=== PATIENT | female | born 1970 | race Caucasian/White ===

== ENCOUNTER → 2023-11-11 | Outpatient (CLI) | payer OTHER ==
--- NOTE | 2023-11-11 13:04 | XR ---
EXAMINATION TYPE: XR chest 2V DATE OF EXAM: 11/11/2023 12:36 PM CLINICAL INDICATION:Female, 53 years old with history of CHEST XR; [facility] COMPARISON: Chest radiographs from 04/06/2012 TECHNIQUE: XR chest 2V Frontal and lateral views of the chest. FINDINGS: Lungs/Pleura: There is no evidence of pleural effusion, focal consolidation, or pneumothorax. Pulmonary vascularity: Unremarkable. Heart/mediastinum: Cardiomediastinal silhouette is unremarkable. Musculoskeletal: No acute osseous pathology. Other findings: None IMPRESSION: No acute cardiopulmonary disease/process.
[2023-11-11 13:14] LABS: Partial Thromboplastin Time 22.5 sec (22.0-30.0); Prothrombin Time 10.5 sec (10.0-12.5)
[2023-11-11 15:33] LABS: BUN/Creat Ratio 34.71 Ratio (12.00-20.00); Blood Urea Nitrogen 24.3 mg/dL (9.0-27.0); Calcium 9.8 mg/dL (8.7-10.3); Chloride 101 mmol/L (96-109); Glucose 92 mg/dL (70-110); Sodium 139 mmol/L (135-145)
[2023-11-11 15:41] LABS: Basophils # (A) 0.05 X 10*3/uL (0.00-0.10); Basophils % (A) 0.7 %; Eosinophils # (A) 0.12 X 10*3/uL (0.04-0.35); Eosinophils % (A) 1.6 %; HCT 38.3 % (37.2-46.3); HGB 13.1 g/dL (12.0-15.0); Lymphocytes % (A) 25.4 %; MCH 35.4 pg (27.0-32.0); MCHC 34.2 g/dL (32.0-37.0); MCV 103.5 FL (80.0-97.0); Mean Platelet Volume 9.3 FL (9.5-12.2); Monocytes # (A) 0.64 X 10*3/uL (0.20-1.00); Monocytes % (A) 8.6 %; NRBC Per 100 WBC 0 X 10*3/uL (0.00-0.01); Neutrophils # (A) 4.67 X 10*3/uL (1.80-7.70); Neutrophils % (A) 62.5 %; Platelet Count 310 X 10*3/uL (140-440); RDW 12.5 % (11.5-14.5); WBC 7.47 X 10*3/uL (4.50-10.00)
[2023-11-11 18:29] LABS: Appearance,Urine Clear (Clear); Bilirubin,Urine Negative (Negative); Blood,Urine Negative (Negative); Color,Urine Yellow (Yellow); Ketones,Urine Negative (Negative); Nitrite,Urine Negative (Negative); PH, Urine 5.5; Specific Gravity,Urine 1.018 (1.001-1.030); Urobilinogen,Urine 0.2 E.U./DL
[2023-11-11 19:00] LABS: Bacteria,Urine Trace
== END | disposition home or self-care (01) ==
LOC: LABPAT 11:08
PROVIDERS: ATTEND Orthopaedic Surgery Orthopaedic Surgery of the Spine
DX: Z01.812 Encounter for preprocedural laboratory examination (principal); M51.27 Other intervertebral disc displacement, lumbosacral region; R94.31 Abnormal electrocardiogram [ECG] [EKG]
CPT/HCPCS: 71046; 80048; 81001; 85025; 85610; 85730; 86850; 86900; 86901; 87070; 93005

== ENCOUNTER 2023-11-15 05:39 | Observation (INO) | payer OTHER ==
[~2023-11-15 05:39] MED LIST: ceFAZolin 1,000 MG in SODIUM CHLORIDE 0.9% IRRIGATIO 1,000 ML IRRIGATION PRN
[2023-11-15] MEDS ORDERED: LIDOCAINE 1% (10MG/ML) FOR IV START INTRADERMA PRN (06:52)
[2023-11-15] MEDS ORDERED: ONDANSETRON 4 MG/2 ML VIAL IVP ONE (06:52)
[2023-11-15] MEDS ORDERED: SCOPOLAMINE 1 MG/72 HR PATCH TRANSDERM ONE (06:52)
[2023-11-15] MEDS ORDERED: DEXAMETHASONE SOD PHOSPHATE 4 MG/ML 1 ML VIAL IV ONE (06:52)
[2023-11-15] MEDS ORDERED: ONDANSETRON 4 MG/2 ML VIAL ONE (06:52)
[2023-11-15] MEDS: LACTATED RINGERS 1,000 ML IV SCH ×2 (07:00→13:07)
[2023-11-15] MEDS ORDERED: MIDAZOLAM 2 MG/2 ML VIAL IV PRN (07:00)
[2023-11-15] MEDS ORDERED: fentaNYL (PF) 50 MCG/ML 2 ML AMP IV PRN (07:00)
[2023-11-15] MEDS ORDERED: fentaNYL (PF) 50 MCG/ML 2 ML AMP ONE (07:56)
[2023-11-15] MEDS ORDERED: GLYCOPYRROLATE 0.2 MG/ML 2 ML VIAL ONE (07:56)
[2023-11-15] MEDS ORDERED: ESMOLOL 100 MG/10 ML VIAL ONE (07:56)
[2023-11-15] MEDS ORDERED: MIDAZOLAM 2 MG/2 ML VIAL ONE (07:56)
[2023-11-15] MEDS ORDERED: PROPOFOL 10 MG/ML 20 ML VIAL IV ONE (07:56)
[2023-11-15] MEDS ORDERED: NEOSTIGMINE 1 MG/ML 10 ML VIAL ONE (07:56)
[2023-11-15] MEDS ORDERED: PHENYLEPHRINE 10 MG/ML VIAL ONE (07:56)
[2023-11-15] MEDS ORDERED: ROCURONIUM 10 MG/ML (5 ML VIAL) IV ONE (07:56)
[2023-11-15] MEDS ORDERED: HYDROmorphone (PF) 1 MG/ML ONE (07:56)
[2023-11-15] MEDS ORDERED: SUCCINYLCHOLINE CHLORIDE 200 MG/10 ML VIAL IV ONE (07:56)
[2023-11-15] MEDS ORDERED: LIDOCAINE 1% INJ 10MG/ML (20 ML MDV) ONE (07:56)
[2023-11-15] MEDS ORDERED: LACTATED RINGERS 1,000 ML IV ONE (09:19)
[2023-11-15] MEDS ORDERED: THROMBIN (BOVINE) 5,000 UNIT VIAL TOPICAL ONE (09:52)
[2023-11-15] MEDS ORDERED: LIDOCAINE 1%-EPI 1:100,000 50 ML VIAL SQ ONE (09:52)
[2023-11-15] MEDS ORDERED: GELATIN SPONGE,ABSORB (LARGE) 1 EACH SPONGE TOPICAL ONE (09:52)
[2023-11-15] MEDS ORDERED: ONDANSETRON 4 MG/2 ML VIAL IVP PRN (10:48)
[2023-11-15] MEDS ORDERED: HYDROmorphone 0.5 MG/0.5 ML SYRINGE IVP PRN (10:48)
[2023-11-15] MEDS ORDERED: BENZOCAINE/MENTHOL LOZENG 1 EACH LOZENGE MUCOUS MEM PRN (10:48)
[2023-11-15] MEDS ORDERED: SENNOSIDES-DOCUSATE SODIUM 1 EACH TAB PO PRN (10:48)
[2023-11-15] MEDS ORDERED: HYDROcodone/APAP 5-325MG 1 EACH TAB PO PRN (10:50)
[2023-11-15] MEDS ORDERED: traMADol 50 MG TAB PO PRN (10:50)
[2023-11-15] MEDS: HYDROmorphone 0.5 MG/0.5 ML SYRINGE IVP PRN ×3 (10:54→11:32)
--- NOTE | 2023-11-15 10:55 | P.OP ---
Date of Procedure: 11/15/23 Preoperative Diagnosis: Massive disc herniation L4 5, right lower extremity radiculopathy, right lower extremity weakness, retrolisthesis L4 5, degenerative disc disease, low back pain Postoperative Diagnosis: Same Anesthesia: GETA Pathology: none sent Condition: stable Disposition: PACU Description of Procedure: DESCRIPTION OF PROCEDURE(S): BRIEF OPERATIVE NOTE Preoperative Diagnosis: Massive disc herniation L4 5, right lower extremity radiculopathy, right lower extremity weakness, retrolisthesis L4 5, degenerative disc disease, low back pain Postoperative Diagnosis: Same Procedure: Laminectomy and decompression L4 [address] navigation aided Minimally invasive Posterior lateral decompression and facet fusion L4 5 Minimally invasive Transforaminal lumbar interbody fusion for a 360 fusion L4 5 Discectomy for decompression L4 5 be on that needed for preparation for fusion Placement of interbody graft L4 5 Use of computer navigation for fusion L4 5 Local autogenous bone grafting L4 5 Aspiration of bone marrow from the vertebral body pedicle L4 on the right Use of bone graft extenders Surgeon: Dr. Starkey Attendance Clerk: Carlos Manuel GUERRA who is present throughout the entire the case persistence during positioning, dissection, exposure, visualization, and all crucial elements of the case as well as closure. Anesthesia: General anesthesia per Estimated blood loss: Approximately 200 mL Complications: None apparent Components implanted: K2M minimally invasive [place] pedicle screw system withscrews measuring 6.5 mm in diameter to rods one L[place] interbody cage with 10 mL of osteo amp bio4 bone graft substitute and 30 mL of the BX bone fibers to supplement the local autogenous bone graft and bone marrow aspirate Disposition: To recovery room in good stable condition. OPERATIVE INDICATIONS The patient has had severe issues at their lower extremity in her lower back over the past several years with significant worsening over the past several months. Over the past few months the patient had pain at their back and their lower extremities. The patient is having severe radicular symptoms at their lower extremity with weakness. The pain was severe particularly on the right side and giving her weakness on the right side causing her significant debility with difficulty with any sort of regular activities or obtaining comfort. The patient is having significant pain in their back. They are unable to obtain any comfort. We did aggressive conservative treatment with medications therapy and interventional pain management however thery were not having any relief. The patient also showed evidence of a listhesis with some dynamic instability at L4 5 with retrolisthesis. The patient has been through conservative treatment. We discussed various treatment options including surgery, and the patient wishes to proceed with surgery We discussed the risk, patient's alternatives and benefits of surgery including but not limited to, risk of bleeding risk of infection, risk of need for further surgery, risk of decreased, loss of motion, muscle function, malunion nonunion, hardware failure, nerve damage, paralysis, heart attack, blindness and . They understood issues with the current pandemic and the possibility of exposure. OPERATIVE SUMMARY After discussing all the risks, patient alternatives and benefits at length, the patient elected to proceed with surgical intervention, signed informed consent, and presented for their procedure. The patient was seen and examined in the preoperative holding area and the surgical site was marked. The patient was given antibiotics and brought to the operating room. The patient was sedated and intubated by anesthesia in standard fashion. The patient was positioned on to the operating room table in a prone position on the appropriate frame which was well-padded and well molded. We were careful to pad any bony prominences and pressure points. We were careful to maintain the patient's cervical spine and good neutral alignment and position throughout. The patient was prepped and draped in a normal standard fashion. An appropriate timeout and keystone protocol performed. We were able to proceed with the marco nick. The local wound area was infiltrated with local anesthetic. Over the right iliac crest I was able to make small stab incisions and establish a guidepin screw fixation to the iliac crest 2. I was able place the computer referencing device over the guidepins to establish an appropriate reference point for the Ziem CT navigation. We then were able to place patient in an appropriate drape and do a navigation spin for visualization and 3-D reconstruction of the lumbar spine. I was able utilize C-arm guidance and navigation to establish appropriate position over the pedicles bilaterally at the appropriate levels at L4 5 . With the appropriate levels confirmed was able to make small incisions over the appropriate pedicle sites bilaterally at L4 5. Utilizing the computer navigation device I was able to establish bony landmarks at the right iliac crest for a bony reference point for the navigation device. I was able to establish a Jamshidi needle over the lateral aspect of the pedicle and advanced the trocar into the pedicle being careful not to breech superiorly inferiorly medially or laterally using computer navigation device. Position was confirmed regularly with AP and lateral images on C-arm and with the computer navigation device at the appropriate levels bilaterally. I was able to establish the trocar into the pedicle appropriately into the posterior aspect of the vertebral body bilaterally at the appropriate levels at L4 5. This was done at each of the pedicle positions and each of the vertebrae. At the superior vertebrae I was able to take approximately 10 mL of bone aspiration for use later in the case to supplement the allograft and autograft bone. I was able place the guidewire into the trocar and into the vertebral body appropriately under C-arm guidance. Dissection was taken down over the wire to the appropriate starting position for the screw placed. The appropriate length screw was chosen, threaded over the guidewire and screwed appropriately into the pedicle and vertebral body under C-arm guidance in excellent alignment and position with good bony purchase. This is done at each of the screw sites at the appropriate levels at L4 and L5. With the screws intact I extended the incision to connect the screw hole sites on the most symptomatic side on the right side. I dissected down to establish access over the pars and lamina to the base of the spinous process. I was able to expose the facet joint. The capsule the facet was taken down and showed some facet arthrosis at the joint. I was able to use a combination of curettes and Kerrison rongeurs and a high-speed drill to take down the facet joint and do a facetectomy. I was able get excellent foraminal decompression and central decompression with undermining across midline to perform a laminectomy centrally and contralaterally. As able get good central decompression. The ligamentum flavum was taken down to further decompress centrally and at bilateral neural fo ramen. I was able to expose the disc space and visualize the traversing nerve root. Note was made of some disc protrusion and disc herniation that was abutting the traversing nerve root at the level causing further compression of the nerve root. There was evidence of essentially a massive disc herniation with large extruded fragment and multiple small fragments causing significant distortion of the neurologic structures. I was able to establish a annulotomy at the appropriate level protecting soft tissue and neural structures. Note was made of some disc desiccation at the disc. I performed a complete discectomy with accommodation of curettes and rasps and scrapers. I reduced significant expiration and removal of disc material nor she had excellent decompression. I was able get good endplate preparation at the disc space. I sized for the appropriate size interbody spacer protecting the soft tissue and neural structures. The wound was copiously irrigated and suctioned dry. There is no evidence of any dural tear or leak. I was able to pack the disc space with local autogenous bone graft as well as a small amount of bone graft which was also placed into the interbody cage itself. Protecting the soft tissue structures and neural structures I was able place the interbody cage in good alignment and good position with good fit and fill at the interbody space. Position was confirmed with C-arm guidance. Good hemostasis maintained. There is no evidence of any dural tear or leak. The wound was irrigated and suctioned dry. With the hardware intact, intraoperative C-arm imaging was again taken which showed good alignment and position of the hardware at the appropriate levels at L4 and L5. We were then able to measure, contour and place the rods and appropriate hardware bilaterally. I was able to place capcrews, tighten them down, and torque them with the torque screwdriver appropriately. With this intact I was able to place the local autogenous bone graft with additional bone graft enhancer as necessary into the posterior lateral gutters over the decorticated transverse processes and facet joints on the contralateral side. The remainder of the bone graft was placed over the facet joint on the contralateral side after taking down the facet joint capsule. With the bone graft intact, a stable construct, and good decompression at the appropriate leve ls, we were able to proceed with closure. Good hemostasis was maintained. There is no evidence of dural tear or leak. The fascia was closed for a watertight closure. he subcuticular tissue was closed with absorbable suture. The wound was cleaned and dried and dressed with the appropriate dressing. The drapes were broken down. The patient was gently rolled back onto their hospital bed being careful to maintain their cervical spine and good neutral alignment and position. They were woken up by anesthesia, extubated, and brought to the recovery room in good stable condition. The patient will be admitted to the hospital for appropriate postoperative care, medical management and monitoring. We will continue to follow them closely about the postoperative course.
--- NOTE | 2023-11-15 12:01 | XR ---
Fluoroscopy INDICATION: Pain FINDINGS: Fluoroscopy time: 17 seconds. Total dose area product (DAP) in uGy*m?, mGy*cm? (or similar): 2089.55 Images obtained: 0. IMPRESSION: 1. Documentation of fluoroscopy.
[2023-11-15] MEDS: HYDROcodone/APAP 5-325MG 1 EACH TAB PO PRN ×2 (13:39→22:53)
[2023-11-15] MEDS: CYCLOBENZAPRINE 10 MG TAB PO PRN (13:39)
[2023-11-15] MEDS: HYDROmorphone 1 MG/ML 1 ML SYRINGE IVP PRN ×2 (16:26→20:17)
[2023-11-15] MEDS: SODIUM CHLORIDE 0.9% 1,000 ML IV SCH (16:31)
[2023-11-15] MEDS: ACETAMINOPHEN TAB 325 MG TAB PO PRN (18:41)
[2023-11-15] MEDS: ZOLPIDEM 5 MG TAB PO SCH (20:19)
[2023-11-16] MEDS: HYDROmorphone 1 MG/ML 1 ML SYRINGE IVP PRN ×5 (00:43→20:14)
[2023-11-16] MEDS: SODIUM CHLORIDE 0.9% 1,000 ML IV SCH ×2 (00:47→16:19)
[2023-11-16] MEDS: HYDROcodone/APAP 5-325MG 1 EACH TAB PO PRN ×5 (03:05→22:20)
[2023-11-16] MEDS: ACETAMINOPHEN TAB 325 MG TAB PO PRN (03:06)
[2023-11-16] MEDS: CYCLOBENZAPRINE 10 MG TAB PO PRN ×2 (08:29→16:19)
[2023-11-16] MEDS: ESCITALOPRAM 20 MG TAB PO SCH (08:29)
[2023-11-16] MEDS: SENNOSIDES-DOCUSATE SODIUM 1 EACH TAB PO SCH (08:29)
[2023-11-16 08:30] LABS: Basophils # (A) 0.03 X 10*3/uL (0.00-0.10); Basophils % (A) 0.3 %; Eosinophils # (A) 0.02 X 10*3/uL (0.04-0.35); Eosinophils % (A) 0.2 %; HCT 31.1 % (37.2-46.3); HGB 11.4 g/dL (12.0-15.0); Lymphocytes # (A) 1.25 X 10*3/uL (0.90-5.00); Lymphocytes % (A) 14.5 %; MCH 37.6 pg (27.0-32.0); MCHC 36.7 g/dL (32.0-37.0); MCV 102.6 FL (80.0-97.0); Mean Platelet Volume 9.4 FL (9.5-12.2); Monocytes # (A) 0.88 X 10*3/uL (0.20-1.00); Monocytes % (A) 10.2 %; NRBC Per 100 WBC 0 X 10*3/uL (0.00-0.01); Neutrophils # (A) 6.43 X 10*3/uL (1.80-7.70); Neutrophils % (A) 74.5 %; Platelet Count 237 X 10*3/uL (140-440); RBC 3.03 X 10*6/uL (4.10-5.20); RDW 12.8 % (11.5-14.5); WBC 8.64 X 10*3/uL (4.50-10.00)
[2023-11-16] MEDS: LOSARTAN 50 MG TAB PO SCH (08:30)
[2023-11-16] MEDS: AMPHETAMINE PO SCH (08:31)
[2023-11-16] MEDS: DEXTROAMPHETAMINE PO SCH (08:31)
--- NOTE | 2023-11-16 08:39 | P.PN ---
Progress Note - Text Progress Note Date: 11/16/23 Orthopedic Spine History of present illness: Patient is a pleasant 53-year-old female who is seen and examined at the bedside following posterior lateral decompression and fusion performed yesterday. Patient states they are doing ok post operatively in regards to her lumbar pain. She is having significant pain radiating down her right lower extremity. She has difficulty sitting and lying due to her pain. Her pain is better controlled while standing and ambulating. She continues to receive oral Zachary and IV Dilaudid for pain control. She does not feel her pain has been quite adequately controlled. Her Peña catheter was discontinued this morning. She's been eating without any significant difficulty. Currently does not complain of nausea, vomiting, fever, or chills. Physical Exam Lumbar Fusion: Status post surgical day number 1 Patient is awake, alert, and oriented 3. Patient currently standing at the bedside Vital signs stable Good chest excursion with deep inspiration and expiration Dorsiflexion, plantarflexion, and extensor hallucis longus positive sustained bilaterally No signs or symptoms of DVT; no calf pain; pneumatic cuffs not currently intact bilateral lower extremities Optifoam dressings are clean, dry, and intact over the lumbar spine and right iliac crest; no erythema, purulence, or signs of infection Neurovascularly intact bilaterally lower extremities Assessment: Status post L4-5 minimally invasive posterior lateral decompression and fusion with transforaminal lumbar interbody fusion Right lower extremity radiculopathy Right lower extremity weakness L4-5 retrolisthesis Lumbar degenerative disc disease L4-5 massive disc herniation Low back pain Hypertension Plan: 1. Ambulate as tolerated; work with Physical Therapy to increase mobilization 2. Continue pain control with IV and oral medications; she has had some difficulty of pain control. We will currently plan to increase Zachary 5 mg/325 mg to 1-2 tabs every 4 hours as needed for pain. We will continue with both IV and oral medications until her pain improves and we are able to start weaning her off of the IV pain medication. 3. Dressings to remain intact with Optifoam; patient may shower with dressings intact 4. Medical management can continue to manage patient for patient's other medical diagnoses 5. We will continue to follow the patient closely; depending on the patient's progress, we may plan for discharge home as early as tomorrow, 11/17/2023 6. Patient can follow-up with Carlos Manuel Kunz PA-C or Dr. Jairo Starkey at [facility] in 2-3 weeks following discharge
[2023-11-16 09:06] LABS: BUN/Creat Ratio 14.29 Ratio (12.00-20.00); Calcium 8.5 mg/dL (8.7-10.3); Carbon Dioxide 23.8 mmol/L (21.6-31.8); Chloride 104 mmol/L (96-109); Glucose 123 mg/dL (70-110); Sodium 138 mmol/L (135-145)
[2023-11-16] MEDS: ZOLPIDEM 5 MG TAB PO SCH (20:14)
[2023-11-17] MEDS: HYDROmorphone 1 MG/ML 1 ML SYRINGE IVP PRN ×4 (01:14→20:35)
[2023-11-17] MEDS: SODIUM CHLORIDE 0.9% 1,000 ML IV SCH ×2 (03:16→15:51)
[2023-11-17] MEDS: HYDROcodone/APAP 5-325MG 1 EACH TAB PO PRN ×5 (03:18→23:52)
[2023-11-17] MEDS: LACTATED RINGERS 1,000 ML IV SCH (05:04)
[2023-11-17] MEDS: LOSARTAN 50 MG TAB PO SCH (07:52)
[2023-11-17] MEDS: ESCITALOPRAM 20 MG TAB PO SCH (07:52)
[2023-11-17] MEDS: SENNOSIDES-DOCUSATE SODIUM 1 EACH TAB PO SCH (07:52)
[2023-11-17] MEDS: DEXTROAMPHETAMINE PO SCH (07:54)
[2023-11-17] MEDS: AMPHETAMINE PO SCH (07:54)
[2023-11-17] MEDS: CYCLOBENZAPRINE 10 MG TAB PO PRN ×2 (10:14→18:43)
--- NOTE | 2023-11-17 12:30 | P.PN ---
Progress Note - Text Progress Note Date: 11/17/23 Orthopedic Spine History of present illness: Patient is a pleasant 53-year-old female who is seen and examined at the bedside following posterior lateral decompression and fusion performed Wednesday. She is continuing have difficulty with pain control. We attempted to wean her off of IV Dilaudid but her pain has worsened. She continues to have pain radiating over her bilateral hips and mainly down the right lower extremity. She has difficulty sitting because it exacerbates her pain further. She is able to stand and ambulate. She did work with physical therapy today. She has been able to ambulate to the restroom. Her low back pain is fairly well controlled. She is requiring regular prescribed pain medication for pain control. She has been eating and voiding without difficulty. Physical Exam Lumbar Fusion: Status post surgical day number 2 Patient is awake, alert, and oriented 3 Patient currently standing at the bedside Vital signs stable Good chest excursion with deep inspiration and expiration Dorsiflexion, plantarflexion, and extensor hallucis longus positive sustained bilaterally No signs or symptoms of DVT; no calf pain; pneumatic cuffs not currently intact bilateral lower extremities Optifoam dressings are clean, dry, and intact over the lumbar spine and right iliac crest; no erythema, purulence, or signs of infection Neurovascularly intact bilaterally lower extremities Assessment: Status post L4-5 minimally invasive posterior lateral decompression and fusion with transforaminal lumbar interbody fusion Right lower extremity radiculopathy Right lower extremity weakness L4-5 retrolisthesis Lumbar degenerative disc disease L4-5 massive disc herniation Low back pain Hypertension Plan: 1. Ambulate as tolerated; work with Physical Therapy to increase mobilization 2. He tried to wean off of IV Dilaudid but the patient has had worsening pain since that time. We will resume IV Dilaudid. We will plan to continue pain control with IV and oral medications including IV Dilaudid, oral Antler Antler 5 mg/325 mg to 1-2 tabs every 4 hours, and oral cyclobenzaprine 10 mg. We'll try to space out the IV Dilaudid. 3. Dressings to remain intact with Optifoam; patient may shower with dressings intact 4. Medical management can continue to manage patient for patient's other medical diagnoses 5. We will continue to follow the patient closely; depending on the patient's progress, we may plan for discharge home as early as tomorrow, 11/18/2023, the patient has good improvement of her symptoms tomorrow as compared to today. 6. Patient is requiring a walker to aid in ambulation. The patient has mobility limitation that significantly impairs her ability to participate in her regular activities of daily living at home. Patient is safely able to utilize a walker and has been able to utilize a walker in the hospital. We do feel the patient's functional mobility deficits can be resolved by the use of a walker. Prescription has been signed and provided to case management to obtain this walker. 7. Patient can follow-up with Carlos Manuel Kunz PA-C or Dr. Jairo Starkey at [facility] in 2-3 weeks following discharge The patient was seen and examined. I agree with The above dictation. She feels she would be able to go home on .
[2023-11-17] MEDS: ZOLPIDEM 5 MG TAB PO SCH (20:35)
[2023-11-17] MEDS: ACETAMINOPHEN TAB 325 MG TAB PO PRN (20:35)
[2023-11-17] MEDS ORDERED: IBUPROFEN 600 MG TAB PO PRN (23:17)
[2023-11-18 03:53] VITALS: RESP 18
[2023-11-18] MEDS: SODIUM CHLORIDE 0.9% 1,000 ML IV SCH (06:13)
[2023-11-18] MEDS: LACTATED RINGERS 1,000 ML IV SCH (06:13)
[2023-11-18 08:17] VITALS: BP 101/71; PULSE 99; TEMP 99.8
[2023-11-18] MEDS: ESCITALOPRAM 20 MG TAB PO SCH (09:17)
[2023-11-18] MEDS: HYDROcodone/APAP 5-325MG 1 EACH TAB PO PRN ×2 (09:18→13:14)
[2023-11-18] MEDS: SENNOSIDES-DOCUSATE SODIUM 1 EACH TAB PO SCH (09:18)
[2023-11-18] MEDS: LOSARTAN 50 MG TAB PO SCH (09:18)
--- NOTE | 2023-11-18 11:39 | P.DS ---
Providers Date of admission: 11/16/23 12:28 Attending physician: Ramon Starkey Primary care physician: [facility] Course: The patient presented on the day of admission as per their operative note. She underwent minimally invasive decompression fusion for her disc degeneration with stenosis and lower extremity radiculopathy. She has been making progress with her mobility and her pain control. She is now taking oral medications without any IV dictation. She is tolerating her regular diet. She is voiding freely and had a bowel movement this morning. Overnight she had some temperatures at around 100 tendon had one incident 203. She said that she had some jane and the fever broke and since midnight she has been feeling great. She says she is not having any more fevers and she is feeling much more comfortable today. She has been able to sit and stand much easier now. She says her leg is doing better Physical Exam Her vital signs temperature 90.9 and 98. She is afebrile currently and with stable vital signs The incision site is clean dry and intact. There is no evidence of any infection at the surgical site. Dressings are clean and dry. There is no erythema no drainage. There is no purulence no evidence of infection. Abdomen soft and nontender. Chest has good excursion with deep inspiration and expiration. The patient has active and passive range of motion intact at the upper and lower extremities. There is no acute change in neurologic status. She is ambulatory and mobilizing well Hospital Course Postoperative day #3 status post minimally invasive decompression fusion for her disc degeneration with stenosis and lower extremity radiculopathy . The patient has been making good progress postoperatively. They have completed the prophylactic antibiotics without any signs or symptoms of infection. Last night she had some temperatures but this seems to be completely resolved now. She is not having any fevers and she feels much better. She had some achiness feeling and it is possible that she had a short term virus which is resolved. She does not appear infectious or toxic and she is quite comfortable now. She does not seem to be having other issues behind her recovery from her lumbar surgery at this point. I do not think that she has signs of infection at this point and her incision site certainly looks clear. She's not having problems chest she is not having any cough or shortness of breath or abdominal issues. She does not have any nausea vomiting or diarrhea. The patient has been able to advance their diet, and is tolerating diet adequately. The pain was initially controlled with IV medications and is now controlled appropriately with oral medications. The patient has been able to increase their mobilization. The patient has progressed appropriately. Her temperatures have resolved and I think they are in good stable condition for discharge today. They will be sent home with appropriate prescriptions. I answered their questions to the best of my ability in a language that they can understand and they are agreeable with the plan. They will follow up as directed. Patient Condition at Discharge: Fair Plan - Discharge Summary Discharge Rx Participant: No New Discharge Prescriptions: New HYDROcodone/APAP 5-325MG [[place] 5-325] 1 - 2 tab PO Q6HR PRN 7 Days #56 tab PRN Reason: Pain No Action Dextroamphetamine/Amphetamine [Adderall Xr 25 mg Capsule] 25 mg PO DAILY Zolpidem [Ambien] 5 mg PO HS Losartan Potassium 50 mg PO DAILY Escitalopram [Lexapro] 20 mg PO DAILY traMADol HCL 50 mg PO BID PRN PRN Reason: Pain HYDROcodone/APAP 5-325MG [[place] 5-325] 1 tab PO DIRECTED PRN PRN Reason: Pain Ibuprofen 800 mg PO Q8H Discharge Medication List Dextroamphetamine/Amphetamine [Adderall Xr 25 mg Capsule] 25 mg PO DAILY 11/10/23 [History] Escitalopram [Lexapro] 20 mg PO DAILY 11/10/23 [History] HYDROcodone/APAP 5-325MG [[place] 5-325] 1 tab PO DIRECTED PRN 11/10/23 [History] Ibuprofen 800 mg PO Q8H 11/10/23 [History] Losartan Potassium 50 mg PO DAILY 11/10/23 [History] Zolpidem [Ambien] 5 mg PO HS 11/10/23 [History] traMADol HCL 50 mg PO BID PRN 11/10/23 [History] HYDROcodone/APAP 5-325MG [[place] 5-325] 1 - 2 tab PO Q6HR PRN 7 Days #56 tab 11/18/23 [Rx] Follow up Appointment(s)/Referral(s): Carlos Manuel Kunz, GABRIEL [PHYSICIAN [employer]] - 2 Weeks (Patient may follow-up with Carlos Manuel Kunz PA-C or Dr. Jairo Starkey at [facility] in 2-3 weeks following discharge. ) Activity/Diet/Wound Care/Special Instructions: 1. Patient may shower with Optifoam dressing intact. 2. Patient may remove Optifoam dressing in 3 days and shower without a dressing at that time. 3. Patient should refrain from driving until at least after their first follow- up appointment in the office. 4. Patient should avoid excessive bending, twisting, lifting; avoid overhead lifting; no lifting greater than 10 pounds 5. Take medications as prescribed 6. Patient may utilize walker to aid in ambulation as needed 7. Patient should avoid anti-inflammatory medications over the next 6 weeks postoperatively 8. Do not soak in tub Discharge Disposition: HOME SELF-CARE
[2023-11-18] MEDS: AMPHETAMINE PO SCH (12:27)
[2023-11-18] MEDS: DEXTROAMPHETAMINE PO SCH (12:27)
[2023-11-18] MEDS: CYCLOBENZAPRINE 10 MG TAB PO PRN (13:14)
== END 2023-11-18 13:46 | disposition home or self-care (01) ==
LOC: OR 05:39 → 5NMEDONC 12:32 → OR 11-16 12:28 → 5NMEDONC 11-17 01:31
PROVIDERS: ADMIT Orthopaedic Surgery Orthopaedic Surgery of the Spine; ATTEND Orthopaedic Surgery Orthopaedic Surgery of the Spine
DX: M51.16 Intervertebral disc disorders with radiculopathy, lumbar region (principal); M43.16 Spondylolisthesis, lumbar region; I10 Essential (primary) hypertension; F41.9 Anxiety disorder, unspecified; F90.9 Attention-deficit hyperactivity disorder, unspecified type; Z79.899 Other long term (current) drug therapy
CPT/HCPCS: 97530; 97162; 80048; 85025; 87636; 72100; 22630; 22853; 20930; 20936; 61783; G0378 ×3; C1713 ×2; C1762; J2250; J0330; J2710; J0690 ×3; J2405; J2001; J3010; J1170 ×5; J2704; J2371; J1805